=== PATIENT | female | born 1935 | race Caucasian/White ===

== ENCOUNTER → 2016-07-03 | Outpatient (CLI) | payer MEDICARE ==
[~2016-07-03] MED LIST: ADVIL200 MG PO; ASPI-COR81 MG PO; ATIVAN0.5 MG PO; ATIVAN1 MG PO; ATOXIMETIN-B1 CAP PO; BIAXIN500 MG PO; CALTRATE 600600 MG PO; CLINDAMYCIN HC300 MG PO; FABB PO; FOLTABS PO; LISINOPRIL/HCTZ1 TA3 PO; LISINOPRIL5 MG PO; POTASSIUM CHLO10 MEQ PO; SYNTHROID0.075 MG PO; TENORMIN25 MG PO; VITAMIN B6100 MG PO
== END | disposition home or self-care (01) ==
LOC: MAMMO 10:31
DX: R92.1 Mammographic calcification found on diagnostic imaging of breast (principal); Z85.3 Personal history of malignant neoplasm of breast

== ENCOUNTER 2018-12-17 12:35 | Emergency (ER) | payer MEDICARE ==
[~2018-12-17] VITALS: Ht 162.5 cm; Wt 60.3 kg
[2018-12-17] MEDS ORDERED: DOXYCYCLINE100 M3 PO (13:26)
== END 2018-12-17 16:41 | disposition home or self-care (01) ==
LOC: ED 12:35
DX: L02.11 Cutaneous abscess of neck (principal); M79.7 Fibromyalgia; Z88.0 Allergy status to penicillin; Z79.899 Other long term (current) drug therapy; Z79.82 Long term (current) use of aspirin